=== PATIENT | male | born 1970 | race Caucasian/White ===

== ENCOUNTER 2022-10-29 08:28 | Outpatient (CLI) | payer OTHER, SELFPAY ==
[2022-10-31 21:54] LABS: Testosterone, Adult Male 341 ng/dL (300-890)
== END 2022-10-29 08:29 | disposition home or self-care (01) ==
PROVIDERS: PCP Family Medicine; Visit Provider Family Medicine
DX: N52.9 Male erectile dysfunction, unspecified (principal); I10 Essential (primary) hypertension; E78.5 Hyperlipidemia, unspecified; E11.9 Type 2 diabetes mellitus without complications; E66.9 Obesity, unspecified; Z12.5 Encounter for screening for malignant neoplasm of prostate
CPT/HCPCS: 80048; 80061; 84153; 84403

== ENCOUNTER 2023-01-26 07:50 | Outpatient (CLI) | payer OTHER, SELFPAY ==
[2023-01-26 14:12] LABS: Creatinine Urine 78.4 mg/dL
[2023-01-26 14:16] LABS: Microalbumin Creatinine Ratio 10 mg/g (0-30); Microalbumin Urine < 1 mg/dL
== END 2023-01-26 07:51 | disposition home or self-care (01) ==
PROVIDERS: PCP Family Medicine; Visit Provider Family Medicine
DX: E11.9 Type 2 diabetes mellitus without complications (principal); I10 Essential (primary) hypertension; E78.5 Hyperlipidemia, unspecified
CPT/HCPCS: 80061; 82043; 82570

== ENCOUNTER 2023-02-13 07:05 | Outpatient (CLI) | payer OTHER, SELFPAY | END 2023-02-13 07:06 | disposition home or self-care (01) | LOC: INJ CL 07:06 | PROVIDERS: PCP Family Medicine; Visit Provider Family Medicine | DX: M47.816 Spondylosis without myelopathy or radiculopathy, lumbar region (principal) | CPT/HCPCS: 64493; J0702; Q9966 ==

== ENCOUNTER 2023-06-23 12:17 | Outpatient (CLI) | payer OTHER, SELFPAY ==
--- NOTE | 2023-06-23 13:50 | W.ANESCHARGE ---
Anesthesia Charges Start Date/Time Anesthesia Start Date: 06/23/23 Anesthesia Start Time: 13:40 Stop Date/Time Anesthesia Stop Date: 06/23/23 Anesthesia Stop Time: 14:46
--- NOTE | 2023-06-23 14:47 | W.ANESCHARGE ---
Anesthesia Charges Start Date/Time Anesthesia Start Date: 06/23/23 Anesthesia Start Time: 13:40 Stop Date/Time Anesthesia Stop Date: 06/23/23 Anesthesia Stop Time: 14:46
== END 2023-06-23 12:18 | disposition home or self-care (01) ==
LOC: OP CLINIC 12:18
PROVIDERS: PCP Family Medicine; Visit Provider Surgery
DX: K63.5 Polyp of colon (principal); K62.1 Rectal polyp; Z86.010 Personal history of colon polyps
CPT/HCPCS: 00811; 45385; 88305; J2405; J2704

== ENCOUNTER 2023-08-19 07:39 | Outpatient (CLI) | payer OTHER, SELFPAY | END 2023-08-19 07:40 | disposition home or self-care (01) | LOC: NFLDREF 08-20 06:07 | PROVIDERS: PCP Family Medicine; Referring Provider Family Medicine; Visit Provider Family Medicine | DX: E11.9 Type 2 diabetes mellitus without complications (principal); I10 Essential (primary) hypertension; E78.2 Mixed hyperlipidemia | CPT/HCPCS: 80048; 80061 ==

== ENCOUNTER 2024-07-08 10:48 | Outpatient (CLI) | payer OTHER, SELFPAY | END 2024-07-08 10:49 | disposition home or self-care (01) | LOC: INJ CL 10:49 | PROVIDERS: PCP Family Medicine; Visit Provider Family Medicine | DX: M47.816 Spondylosis without myelopathy or radiculopathy, lumbar region (principal); M79.18 Myalgia, other site; G89.4 Chronic pain syndrome | CPT/HCPCS: 64493; 64494; J0702; Q9966 ==

== ENCOUNTER 2024-08-16 07:28 | Outpatient (CLI) | payer OTHER, SELFPAY | END 2024-08-16 07:29 | disposition home or self-care (01) | LOC: INJ CL 07:29 | PROVIDERS: PCP Family Medicine; Visit Provider Family Medicine | DX: M54.16 Radiculopathy, lumbar region (principal); M51.369 Other intervertebral disc degeneration, lumbar region without mention of lumbar back pain or lower extremity pain | CPT/HCPCS: 62323; J0702; Q9966 ==

== ENCOUNTER 2024-09-22 08:28 | Outpatient (CLI) | payer OTHER, SELFPAY | END 2024-09-22 08:29 | disposition home or self-care (01) | PROVIDERS: PCP Family Medicine; Visit Provider Family Medicine | DX: E78.2 Mixed hyperlipidemia (principal); I10 Essential (primary) hypertension; E11.9 Type 2 diabetes mellitus without complications; Z12.5 Encounter for screening for malignant neoplasm of prostate | CPT/HCPCS: 80048; 80061; 84460; G0103 ==

== ENCOUNTER 2024-12-07 13:14 | Outpatient (CLI) | payer OTHER, SELFPAY ==
--- NOTE | 2024-12-07 13:45 | CRLHL7_ITS ---
For Patients: As a result of the Century Cures Act, medical imaging exams and procedure reports are released immediately into your electronic medical record. You may view this report before your referring provider. If you have questions, please contact your health care provider. INDICATION: Low back pain. TECHNIQUE : Lumbar spine MRI without contrast. COMPARISON: Lumbar spine MRI from 12/01/2022. FINDINGS : Five lumbar type vertebral bodies, with the last fully formed disc space designated as L5-S1. Normal lumbar lordotic curve. No recent compression fracture or marrow replacing process. Small hemangiomas L1/L2 vertebral bodies. Lower cord/conus signal is normal. The conus terminates at a normal location. No intradural lesion. No extraspinal soft tissue abnormalities. Discs/Endplates: Mild disc height loss and disc desiccation L2-3 and L4-5. Remaining discs are within normal limits. Findings at individual levels as follows: T11-12: No spinal canal or neural foraminal stenosis. T12-L1: No spinal canal or neural foraminal stenosis. L1-2: No spinal canal or neural foraminal stenosis. L2-3: Mild disc bulge. Bilateral low-grade facet arthrosis. No spinal canal or neural foraminal stenosis. L3-4: Mild disc bulge. No spinal canal or neural foraminal stenosis. L4-5: 5 millimeters grade 1 anterolisthesis. High-grade bilateral facet arthrosis. A 7 millimeter right-sided facet joint synovial cyst which contacts the traversing right L5 nerve root. Mild bilateral neural foraminal stenosis. No spinal canal stenosis. Stir hyperintense signal posterior elements, facets and paraspinal soft tissues, consistent with stress reaction/degenerative inflammation. L5-S1: Right-sided facet arthrosis. No spinal canal or neural foraminal stenosis. Imaged SI joints: Within normal limits. Imaged sacrum: Within normal limits. IMPRESSION: 1. No acute fracture or marrow replacing process. 2. At L4-5, mild grade 1 anterolisthesis, slightly progressed since prior exam. Stress reaction/active degenerative inflammation associated with the posterior elements and adjacent soft tissues. A new right-sided facet joint synovial cyst which contacts the traversing right L5 nerve root. 3. Scattered spondylosis elsewhere without significant spinal canal/neural foraminal stenosis or compression of neural structures. Dictated by Mukund Ingram MD @ 12/08/2024 10:58:55 AM (Electronically Signed)
== END 2024-12-07 13:15 | disposition home or self-care (01) ==
LOC: MRI 13:15
PROVIDERS: PCP Family Medicine; Visit Provider Family Medicine
DX: M54.16 Radiculopathy, lumbar region (principal); M54.50 Low back pain, unspecified; M65.98 Unspecified synovitis and tenosynovitis, other site
CPT/HCPCS: 72148